=== PATIENT | female | born 1960 | race Caucasian/White ===

== ENCOUNTER 2017-02-04 15:57 | Emergency (ER) | payer OTHER ==
--- NOTE | 2017-02-04 16:08 | DR.PSYCH ---
HPI - Time Seen Time seen: 16:00 - Complaint Chief Complaint Doctors Comments: Patient states that she want to kill herself. She can not take it anymore. She states that she is tired of working and paying all the expenses and her does not scherer anything. She has been for seven years and has tried to kill self before. She states that her has not worked in the seven years of the marriage; she has but his clothes out and he just brings them back in. He has not worked during the marriage and she is just tired. The only this that will help med is to kill myself; just put a gun to my head. Both she and her drink and smoke. Patient states that she has tried to be a perfect person, was brought up in the pentecostalism, has tried to be a perfect person, but I am tired, just want to end it all. She states that she had colon cancer six years ago and last colonoscopy was negative for cancer. Nothing at this time can help her but ending it all. She has tried to get her out of the house but this has failed. PMH - PMH Past Medical History: Anxiety, Depression, Hypertension Past Surgical History: Yes Surgical History: Ortho Surgery - Social History Do you use any recreational Drugs:: No ROS - Review of Systems Eyes: No Symptoms Reported ENTM: No Symptoms Reported Respiratoy: No Symptoms Reported Cardiovascular: No Symptoms Reported Gastrointestinal/Abdominal: No Symptoms Reported Genitourinary: No Symptoms Reported Neurological: No Symptoms Reported Musculoskeletal: No Symptoms Reported Integumentary: No Symptoms Reported Hematologic/Lymphatic: No Symptoms Reported Endocrine: No Symptoms Reported Psychiatric: No Symptoms Reported All Other Systems: Reviewed and Negative PE - Vitals Vitals: Temperature 97.8 F Pulse Rate 81 Respiratory Rate 22 Blood Pressure [Left Arm] 105/59 Blood Pressure 140/86 O2 Sat by Pulse Oximetry 94 - General General Appearance: Alert, Anxious - Head Head Exam: Normal Inspection, Atraumatic Head Exam Physical: negative: Laceration, Abrasion, Contusion, Hematoma, Raccoon Eyes, Leija's Sign, Tenderness of Temporal Artery, CSF Rhinorrhea, CSF Otorrhea, Other - Eyes Eye exam: PERRL, EOMI Pupils: Regular, Round: Bilateral Sclera/Conjunctival: Normal Inspection: Bilateral - ENT ENT Exam: Normal Exam - Neck Neck Exam: Normal Inspection, Full ROM - Chest Chest Inspection: Normal Inspection - Respiratory Respiratory Exam: Normal Lung Sounds Bilat Respiratory Exam: Bilateral Clear to Auscultation - Cardiovascular Cardiovascular Exam: Regular Rate, Normal Rhythm - Abdominal Exam Abdominal Exam: Normal Inspection, Normal Bowel Sounds Abdominal Tenderness: negative: RUQ, RLQ, LUQ, LLQ, Epigastrium, Suprapubic, Diffuse, Mild, Moderate, Severe, Other - Extremities Extremities Exam: Normal Inspection, Full ROM - Back Back Exam: Normal Inspection - Neurologic Neurological Exam: Alert, Oriented X3, CN II-XII Intact Patient Oriented To: Person, Place, Time Speech: Fluid Speech Cranial Nerve Exam: EOM Function (II, III, IV, ): Normal, Facial Sensation (V) : Normal - Psychiatric Psychiatric Exam: Agitated, Suicidal Ideation ROR - Labs Reviewed Result Diagrams: 02/04/17 16:25 02/04/17 16:25 Laboratory: WBC 8.3 X10^3/uL (3.6-10.0) 02/04/17 16:25 RBC 4.27 X10^6/uL (3.5-5.4) 02/04/17 16:25 Hgb 12.5 g/dL (12.0-16.0) 02/04/17 16:25 Hct 37.2 % (36.0-47.0) 02/04/17 16:25 MCV 87.1 fL (80.0-100.0) 02/04/17 16:25 MCH 29.3 pg (27.0-34.0) 02/04/17 16:25 MCHC 33.7 g/dL (33.0-35.0) 02/04/17 16:25 RDW 13.4 % (11.6-16.5) 02/04/17 16:25 Plt Count 244 X10^3/uL (150.0-450.0) 02/04/17 16:25 MPV 8.0 fL (7.4-11.0) 02/04/17 16:25 Neut % 79.2 % (42.0-75.0) H 02/04/17 16:25 Lymph % 14.8 % (21.0-51.0) L 02/04/17 16:25 [place] % 4.7 % (0.0-13.0) 02/04/17 16:25 Eos % 0.8 % (0.9-2.9) L 02/04/17 16:25 Baso % 0.5 % (0.2-1.0) 02/04/17 16:25 Neut # 6.5 x10^3/uL (2.2-4.8) H 02/04/17 16:25 Lymph # 1.2 X10^3/uL (1.3-2.9) L 02/04/17 16:25 [place] # 0.4 x10^3/uL (0.3-0.8) 02/04/17 16:25 Eos # 0.1 x10^3/uL (0.0-0.2) 02/04/17 16:25 Baso # 0.0 X10^3/uL (0.0-0.1) 02/04/17 16:25 Absolute Nucleated RBC 0.0 /100WBC 02/04/17 16:25 Sodium 143 mmol/L (136-145) 02/04/17 16:25 Corrected Sodium TNP 02/04/17 16:25 Potassium 4.1 mmol/L (3.5-5.1) 02/04/17 16:25 Chloride 109 mmol/L (98-107) H 02/04/17 16:25 Carbon Dioxide 26.2 mmol/L (21-32) 02/04/17 16:25 BUN 12 mg/dL (7-18) 02/04/17 16:25 Creatinine 0.87 mg/dL (0.55-1.02) 02/04/17 16:25 Est GFR (MDRD) Af Amer > 60 (>60) 02/04/17 16:25 Est GFR (MDRD) Non-Af > 60 (>60) 02/04/17 16:25 Glucose 89 mg/dL (65-99) 02/04/17 16:25 Calcium 9.0 mg/dL (8.5-10.1) 02/04/17 16:25 Corrected Calcium TNP 02/04/17 16:25 Total Bilirubin 0.10 mg/dL (0.2-1.0) L 02/04/17 16:25 AST 22 Units/L (15-37) 02/04/17 16:25 ALT 20 Units/L (12-78) 02/04/17 16:25 Alkaline Phosphatase 93 Units/L (46-116) 02/04/17 16:25 Total Protein 8.0 g/dL (6.4-8.2) 02/04/17 16:25 Albumin 4.4 g/dL (3.4-5.0) 02/04/17 16:25 Globulin 3.6 g/dL (2.5-4.5) 02/04/17 16:25 Albumin/Globulin Ratio 1.2 Ratio (1.1-2.1) 02/04/17 16:25 Specimen Type Clean catch urine 02/04/17 16:28 Urine Color Yellow (YELLOW) 02/04/17 16: Urine Appearance Clear (CLEAR) 02/04/17 16:28 Urine pH 5.0 (5.0 - 8.0) 02/04/17 16:28 Ur Specific [place] 1.025 (1.000-1.030) 02/04/17 16:28 Urine Protein 2+ (NEGATIVE) 02/04/17 16:28 Urine Glucose (UA) Negative (NEGATIVE) 02/04/17 16:28 Urine Ketones Negative (NEGATIVE) 02/04/17 16:28 Urine Occult Blood 1+ (NEGATIVE) 02/04/17 16:28 Urine Nitrite Negative (NEGATIVE) 02/04/17 16:28 Urine Bilirubin Negative (NEGATIVE) 02/04/17 16:28 Urine Urobilinogen Normal (NORMAL) 02/04/17 16:28 Ur Leukocyte Esterase 1+ (NEGATIVE) 02/04/17 16:28 Urine RBC 01 - 04 /HPF (NEGATIVE) 02/04/17 16:28 Urine WBC 03 - 06 /HPF (NEGATIVE) 02/04/17 16:28 Ur Squamous Epith Cells Many /HPF (NEGATIVE) 02/04/17 16:28 Amorphous Sediment 1+ /HPF (NEGATIVE) 02/04/17 16:28 Urine Bacteria Trace /HPF (NEGATIVE) 02/04/17 16:28 Hyaline Casts Rare /LPF (NEGATIVE) 02/04/17 16:28 Ur Culture Indicated? No/not indicated 02/04/17 16:28 Salicylates < 2.8 mg/dL (2.8-20) L 02/04/17 16:25 Urine Opiates Screen Negative (NEG=<300) 02/04/17 16:28 Urine Methadone Screen Negative (NEG=<300) 02/04/17 16:28 Acetaminophen < 10.0 ug/mL (10-30) L 02/04/17 16:25 Ur Barbiturates Screen Negative (NEG=<200) 02/04/17 16:28 Ur Phencyclidine Scrn Negative (NEG=<25) 02/04/17 16:28 Ur Amphetamines Screen Negative (NEG=<1000) 02/04/17 16:28 U Benzodiazepines Scrn Negative (NEG=<200) 02/04/17 16:28 Urine Cocaine Screen Negative (NEG=<300) 02/04/17 16:28 U Marijuana (THC) Screen Negative (NEG=<50) 02/04/17 16:28 Ethyl Alcohol mg/dL 170 mg/dL (0-19.9) H 02/04/17 16:25 - Diagnosis Discharge Problem: Suicidal risk, Alcohol abuse - Discharge Plan Condition: Stable - Follow ups/Referrals Follow ups/Referrals: NFD,None [Primary Care Provider] - 3 days - Instructions Additional Notes - Additional Notes Additional Notes: Patient accepted by [facility] for evaluation and treatment.
[2017-02-04 16:16] VITALS: BP 140/86; BMI 28.3
[2017-02-04 16:32] LABS: BASOPHILS % (AUTO) 0.5 % (0.2-1.0); EOSINOPHILS # (AUTO) 0.1 x10^3/uL (0.0-0.2); EOSINOPHILS % (AUTO) 0.8 % (0.9-2.9); HEMATOCRIT 37.2 % (36.0-47.0); HEMOGLOBIN 12.5 g/dL (12.0-16.0); LYMPHOCYTES # (AUTO) 1.2 X10^3/uL (1.3-2.9); LYMPHOCYTES % (AUTO) 14.8 % (21.0-51.0); MEAN CORPUSCULAR HEMOGLOBIN 29.3 pg (27.0-34.0); MEAN CORPUSCULAR HGB CONC 33.7 g/dL (33.0-35.0); MEAN CORPUSCULAR VOLUME 87.1 fL (80.0-100.0); MONOCYTES # (AUTO) 0.4 x10^3/uL (0.3-0.8); MONOCYTES % (AUTO) 4.7 % (0.0-13.0); NEUTROPHILS # (AUTO) 6.5 x10^3/uL (2.2-4.8); NEUTROPHILS % (AUTO) 79.2 % (42.0-75.0); PLATELET COUNT 244 X10^3/uL (150.0-450.0); RED BLOOD COUNT 4.27 X10^6/uL (3.5-5.4); RED CELL DISTRIBUTION WIDTH 13.4 % (11.6-16.5); WHITE BLOOD COUNT 8.3 X10^3/uL (3.6-10.0)
--- NOTE | 2017-02-04 16:37 | RAD ---
HISTORY: Depression, suicidal ideations Study: Chest AP portable Comparison: 12/05/2014 Findings: The trachea is midline. The cardiac silhouette is unremarkable. The lungs are clear without focal i nfiltrate or effusion. The bony thorax is unremarkable. IMPRESSION: 1. No acute cardiopulmonary disease. Reported By:
[2017-02-04 16:56] LABS: ALANINE AMINOTRANSFERASE 20 Units/L (12-78); ALBUMIN 4.4 g/dL (3.4-5.0); ALKALINE PHOSPHATASE 93 Units/L (46-116); ASPARTATE AMINO TRANSFERASE 22 Units/L (15-37); BLOOD ALCOHOL 170 mg/dL (0-19.9); BLOOD UREA NITROGEN 12 mg/dL (7-18); CARBON DIOXIDE 26.2 mmol/L (21-32); CHLORIDE 109 mmol/L (98-107); CREATININE 0.87 mg/dL (0.55-1.02); SODIUM 143 mmol/L (136-145); eGFR BLACK RACES > 60 (>60); eGFR NON BLACK RACES > 60 (>60)
[2017-02-04 16:59] LABS: SALICYLATE < 2.8 mg/dL (2.8-20)
[2017-02-04 17:02] LABS: ACETAMINOPHEN < 10.0 ug/mL (10-30)
[2017-02-04 17:11] LABS: BILIRUBIN,URINE NEGATIVE (NEGATIVE); BLOOD/HEMOGLOBIN,URINE 1+ (NEGATIVE); GLUCOSE, URINE NEGATIVE (NEGATIVE); KETONES,URINE NEGATIVE (NEGATIVE); LEUKOCYTE ESTERASE ,URINE 1+ (NEGATIVE); NITRITES,URINE NEGATIVE (NEGATIVE); PROTEIN,URINE 2+ (NEGATIVE); UROBILINOGEN,URINE NORMAL (NORMAL)
[2017-02-04 17:12] LABS: AMORPHOUS SEDIMENT,UR 1+ /HPF (NEGATIVE); APPEARANCE,URINE CLEAR (CLEAR); BACTERIA,URINE TRACE /HPF (NEGATIVE); COLOR,URINE YELLOW (YELLOW); SQUAMOUS EPITHELIAL CELL,UR MANY /HPF (NEGATIVE)
[2017-02-04 17:13] LABS: HYALINE CASTS, URINE RARE /LPF (NEGATIVE)
[2017-02-04] MEDS ORDERED: TYLENOL 325 MG TAB PO ONE ×2 (18:58→18:59)
== END 2017-02-04 19:15 ==
LOC: ER 16:10
DX: R45.851 Suicidal ideations (principal); F10.10 Alcohol abuse, uncomplicated
CPT/HCPCS: 36415; 71010; 80053; 80307; 80320; 81001; 85025; 93005; 93010; 99285; G0434; G6038; G6039; G6040

== ENCOUNTER 2017-02-22 21:03 | Emergency (ER) | payer OTHER ==
[2017-02-22 21:09] VITALS: BMI 25.7
[2017-02-22 21:57] LABS: BASOPHILS % (AUTO) 0.5 % (0.2-1.0); EOSINOPHILS # (AUTO) 0.2 x10^3/uL (0.0-0.2); EOSINOPHILS % (AUTO) 3.8 % (0.9-2.9); HEMATOCRIT 35.3 % (36.0-47.0); LYMPHOCYTES # (AUTO) 2.1 X10^3/uL (1.3-2.9); LYMPHOCYTES % (AUTO) 32.7 % (21.0-51.0); MEAN CORPUSCULAR HEMOGLOBIN 29.2 pg (27.0-34.0); MEAN CORPUSCULAR HGB CONC 33.9 g/dL (33.0-35.0); MEAN CORPUSCULAR VOLUME 85.9 fL (80.0-100.0); MEAN PLATELET VOLUME 7.8 fL (7.4-11.0); MONOCYTES # (AUTO) 0.6 x10^3/uL (0.3-0.8); MONOCYTES % (AUTO) 8.9 % (0.0-13.0); NEUTROPHILS # (AUTO) 3.4 x10^3/uL (2.2-4.8); NEUTROPHILS % (AUTO) 54.1 % (42.0-75.0); PLATELET COUNT 266 X10^3/uL (150.0-450.0); RED BLOOD COUNT 4.11 X10^6/uL (3.5-5.4); RED CELL DISTRIBUTION WIDTH 13.5 % (11.6-16.5); WHITE BLOOD COUNT 6.3 X10^3/uL (3.6-10.0)
[2017-02-22 22:02] LABS: ALANINE AMINOTRANSFERASE 163 Units/L (12-78); ALBUMIN 4.4 g/dL (3.4-5.0); ALKALINE PHOSPHATASE 93 Units/L (46-116); ASPARTATE AMINO TRANSFERASE 77 Units/L (15-37); BLOOD ALCOHOL 240 mg/dL (0-19.9); BLOOD UREA NITROGEN 8 mg/dL (7-18); CALCIUM 9.1 mg/dL (8.5-10.1); CARBON DIOXIDE 27.8 mmol/L (21-32); CHLORIDE 101 mmol/L (98-107); CREATININE 0.74 mg/dL (0.55-1.02); SODIUM 139 mmol/L (136-145); TOTAL PROTEIN 7.9 g/dL (6.4-8.2); eGFR BLACK RACES > 60 (>60); eGFR NON BLACK RACES > 60 (>60)
[2017-02-22 22:13] LABS: SALICYLATE < 2.8 mg/dL (2.8-20)
[2017-02-22 22:19] LABS: BILIRUBIN,URINE NEGATIVE (NEGATIVE); BLOOD/HEMOGLOBIN,URINE NEGATIVE (NEGATIVE); GLUCOSE, URINE NEGATIVE (NEGATIVE); KETONES,URINE NEGATIVE (NEGATIVE); LEUKOCYTE ESTERASE ,URINE 1+ (NEGATIVE); NITRITES,URINE NEGATIVE (NEGATIVE); PROTEIN,URINE NEGATIVE (NEGATIVE); UROBILINOGEN,URINE NORMAL (NORMAL)
--- NOTE | 2017-02-22 22:31 | DR.GENAD ---
HPI - PCP Primary Care Physician: SILVINO - HPI Comment HPI Comment: [place]annah, I told my family that they'll be better off without me. She states she had planned to off herself (with a gun) but does not have the means (gun). She just feels very low. She states that she was treated and just released from [facility] as an inpt. last week and she was supposed to be seen in an outpt. setting today but that appt. was cancelled and rescheduled for next week. - Complaint/Symptoms Chief Complaint:: SUICIDAL DEPRESSION Self Treatment fo Chief Complaint: NONE, WAS SENT TO [facility] RECENTLY FOR SAME C/C - Nurses notes reviewed Nurses Notes Review: Yes - Source History Provided: Patient - Mode of Arrival Mode of Arrival: Ambulatory - Timing Onset of Chief Complaint: 02/22/17 Came on: Suddenly - Associated Signs and Symptoms Associated Signs and Symptoms: Depression PMH - PMH Past Medical History: Yes Past Medical History: Anxiety, Depression, Hypertension Past Surgical History: Yes Surgical History: Ortho Surgery - Family History History of Family Medical Conditions: No - Social History Does patient currently use any type of tobacco product: Yes Have you used tobacco products in the last 12 months: Yes Type of Tobacco Use: Cigarettes Does any household member use tobacco: No Alcohol Use: Occasionally Do you use any recreational Drugs:: No Lives With: Spouse Lives Where: Home - infectious screening In the last 2 months have you had wt loss of >10#?: NO Have you had fever, night sweats or hemotysis?: No Have you traveled outside the country in the last 6 months?: No Isolation: Standard ROS - Review of Systems Constitutional: No Symptoms Reported Eyes: No Symptoms Reported ENTM: No Symptoms Reported Respiratoy: No Symptoms Reported Cardiovascular: No Symptoms Reported Gastrointestinal/Abdominal: No Symptoms Reported Genitourinary: No Symptoms Reported Neurological: No Symptoms Reported Musculoskeletal: No Symptoms Reported Integumentary: No Symptoms Reported Hematologic/Lymphatic: No Symptoms Reported Endocrine: No Symptoms Reported Psychiatric: Depression All Other Systems: Reviewed and Negative PE - Vital Signs Vitals: Temperature 98.4 F Pulse Rate [Left Brachial] 74 Pulse Rate 84 Respiratory Rate 16 Blood Pressure [Left Arm] 110/69 Blood Pressure 154/87 O2 Sat by Pulse Oximetry 97 - General Limitations: No Limitations General Appearance: Alert, In No Apparent Distress - Head Head Exam: Normal Inspection - Eyes Eye exam: Normal Appearance - ENT ENT Exam: Normal Exam - Neck Neck Exam: Normal Inspection, Full ROM - Chest Chest Inspection: Normal Inspection - Respiratory Respiratory Exam: Normal Lung Sounds Bilat - Cardiovascular Cardiovascular Exam: Regular Rate, Normal Rhythm - Abdominal Exam Abdominal Exam: Normal Inspection, Normal Bowel Sounds, Soft - Extremities Extremities Exam: Normal Inspection - Back Back Exam: Normal Inspection - Neurologic Neurological Exam: Alert, Oriented X3, CN II-XII Intact - Psychiatric Psychiatric Exam: Normal Affect, Depressed - Skin Skin Exam: Warm, Dry, Intact, Normal Color ROR - Labs Reviewed Result Diagrams: 02/22/17 21:41 02/22/17 21:41 Laboratory: WBC 6.3 X10^3/uL (3.6-10.0) 02/22/17 21:41 RBC 4.11 X10^6/uL (3.5-5.4) 02/22/17 21:41 Hgb 12.0 g/dL (12.0-16.0) 02/22/17 21:41 Hct 35.3 % (36.0-47.0) L 02/22/17 21:41 MCV 85.9 fL (80.0-100.0) 02/22/17 21:41 MCH 29.2 pg (27.0-34.0) 02/22/17 21:41 MCHC 33.9 g/dL (33.0-35.0) 02/22/17 21:41 RDW 13.5 % (11.6-16.5) 02/22/17 21:41 Plt Count 266 X10^3/uL (150.0-450.0) 02/22/17 21:41 MPV 7.8 fL (7.4-11.0) 02/22/17 21:41 Neut % 54.1 % (42.0-75.0) 02/22/17 21:41 Lymph % 32.7 % (21.0-51.0) 02/22/17 21:41 [place] % 8.9 % (0.0-13.0) 02/22/17 21:41 Eos % 3.8 % (0.9-2.9) H 02/22/17 21:41 Baso % 0.5 % (0.2-1.0) 02/22/17 21:41 Neut # 3.4 x10^3/uL (2.2-4.8) 02/22/17 21:41 Lymph # 2.1 X10^3/uL (1.3-2.9) 02/22/17 21:41 [place] # 0.6 x10^3/uL (0.3-0.8) 02/22/17 21:41 Eos # 0.2 x10^3/uL (0.0-0.2) 02/22/17 21:41 Baso # 0.0 X10^3/uL (0.0-0.1) 02/22/17 21:41 Absolute Nucleated RBC 0.0 /100WBC 02/22/17 21:41 Sodium 139 mmol/L (136-145) 02/22/17 21:41 Corrected Sodium TNP 02/22/17 21:41 Potassium 4.2 mmol/L (3.5-5.1) 02/22/17 21:41 Chloride 101 mmol/L (98-107) 02/22/17 21:41 Carbon Dioxide 27.8 mmol/L (21-32) 02/22/17 21:41 BUN 8 mg/dL (7-18) 02/22/17 21:41 Creatinine 0.74 mg/dL (0.55-1.02) 02/22/17 21:41 Est GFR (MDRD) Af Amer > 60 (>60) 02/22/17 21:41 Est GFR (MDRD) Non-Af > 60 (>60) 02/22/17 21:41 Glucose 107 mg/dL (65-99) H 02/22/17 21:41 Calcium 9.1 mg/dL (8.5-10.1) 02/22/17 21:41 Corrected Calcium TNP 02/22/17 21:41 Total Bilirubin 0.20 mg/dL (0.2-1.0) 02/22/17 21:41 AST 77 Units/L (15-37) H 02/22/17 21:41 ALT 163 Units/L (12-78) H 02/22/17 21:41 Alkaline Phosphatase 93 Units/L (46-116) 02/22/17 21:41 Total Protein 7.9 g/dL (6.4-8.2) 02/22/17 21:41 Albumin 4.4 g/dL (3.4-5.0) 02/22/17 21:41 Globulin 3.5 g/dL (2.5-4.5) 02/22/17 21:41 Albumin/Globulin Ratio 1.3 Ratio (1.1-2.1) 02/22/17 21:41 TSH 3rd Generation 2.708 uIU/mL (0.358-3.74) 02/22/17 21:41 Specimen Type Clean catch urine 02/22/17 22:09 Urine Color Pale yellow (YELLOW) 02/22/17 22:09 Urine Appearance Clear (CLEAR) 02/22/17 22:09 Urine pH 5.0 (5.0 - 8.0) 02/22/17 22:09 Ur Specific [place] 1.010 (1.000-1.030) 02/22/17 22:09 Urine Protein Negative (NEGATIVE) 02/22/17 22:09 Urine Glucose (UA) Negative (NEGATIVE) 02/22/17 22:09 Urine Ketones Negative (NEGATIVE) 02/22/17 22:09 Urine Occult Blood Negative (NEGATIVE) 02/22/17 22:09 Urine Nitrite Negative (NEGATIVE) 02/22/17 22:09 Urine Bilirubin Negative (NEGATIVE) 02/22/17 22:09 Urine Urobilinogen Normal (NORMAL) 02/22/17 22:09 Ur Leukocyte Esterase 1+ (NEGATIVE) 02/22/17 22:09 Urine RBC None seen /HPF (NEGATIVE) 02/22/17 22:09 Urine WBC 2-3 /HPF (NEGATIVE) 02/22/17 22:09 Ur Squamous Epith Cells Rare /HPF (NEGATIVE) 02/22/17 22:09 Amorphous Sediment Trace /HPF (NEGATIVE) 02/22/17 22:09 Urine Bacteria Trace /HPF (NEGATIVE) 02/22/17 22:09 Ur Culture Indicated? No/not indicated 02/22/17 22:09 Salicylates < 2.8 mg/dL (2.8-20) L 02/22/17 21:41 Urine Opiates Screen Negative (NEG=<300) 02/22/17 22:09 Urine Methadone Screen Negative (NEG=<300) 02/22/17 22:09 Acetaminophen 0.0 ug/mL (10-30) L 02/22/17 21:41 Ur Barbiturates Screen Negative (NEG=<200) 02/22/17 22:09 Ur Phencyclidine Scrn Negative (NEG=<25) 02/22/17 22:09 Ur Amphetamines Screen Negative (NEG=<1000) 02/22/17 22:09 U Benzodiazepines Scrn Negative (NEG=<200) 02/22/17 22:09 Urine Cocaine Screen Negative (NEG=<300) 02/22/17 22:09 U Marijuana (THC) Screen Negative (NEG=<50) 02/22/17 22:09 Ethyl Alcohol mg/dL 108 mg/dL (0-19.9) H 02/23/17 05:20 - Diagnosis Discharge Problem: Suicidal ideation, Alcohol abuse - Discharge Plan Disposition: 65 XFER TO PSYCH HOSP/UNIT Condition: Stable - Follow ups/Referrals Follow ups/Referrals: ROMAN DUBOIS [Primary Care Provider] - 3 days - Instructions
[2017-02-22 22:32] LABS: AMORPHOUS SEDIMENT,UR TRACE /HPF (NEGATIVE); APPEARANCE,URINE CLEAR (CLEAR); BACTERIA,URINE TRACE /HPF (NEGATIVE); COLOR,URINE PALE YELLOW (YELLOW); RBC,URINE NONE SEEN /HPF (NEGATIVE); SQUAMOUS EPITHELIAL CELL,UR RARE /HPF (NEGATIVE)
[2017-02-23] MEDS ORDERED: TYLENOL 500 MG TAB EXTRA STRENGTH PO ONE ×2 (03:28→03:29)
[2017-02-23 09:24] VITALS: BP 111/82
== END 2017-02-23 09:20 ==
LOC: ER 21:19
DX: R45.851 Suicidal ideations (principal); F10.10 Alcohol abuse, uncomplicated
CPT/HCPCS: 36415; 80053; 80307; 80320; 81001; 84443; 85025; 99285; G0434; G6038; G6039; G6040

== ENCOUNTER 2023-09-21 22:36 | Observation (INO) ==
--- NOTE | 2023-09-21 22:41 | ED.ABDFE ---
HPI Time Seen Time Seen by Provider: 09/21/23 22:41 Complaint Doctors Chief Complaint Comments: Patient states that she began to have LUQ abdominal pain between 16:00 and 17:00 today. Patient states that the pain is a sharp pain that is severe. She states that she also has dry heaves. Patient denies: fever, hematemesis, hematochezia, weakness. PMH PMH Past Medical History: Anxiety, Depression and Hypertension Past Surgical History: Yes Surgical History: Ortho Surgery Family History Family Medical History: denies Diabetes Mellitus, Cancer, NC, Coronary Artery Disease, Heart Failure, Sudden Cardiac or Hypertension Social History Do you use any recreational Drugs:: No ROS Review of Systems Constitutional: No Symptoms Reported Eyes: No Symptoms Reported ENTM: No Symptoms Reported Respiratoy: No Symptoms Reported Cardiovascular: No Symptoms Reported Gastrointestinal/Abdominal: Abdominal Pain (LUQ) and Nausea; negative Vomiting Genitourinary: No Symptoms Reported Neurological: No Symptoms Reported Musculoskeletal: No Symptoms Reported Integumentary: No Symptoms Reported Hematologic/Lymphatic: No Symptoms Reported Endocrine: No Symptoms Reported Psychiatric: No Symptoms Reported All Other Systems: Reviewed and Negative PE Vital Signs Vitals: Vital Signs Temperature 98.2 F Pulse Rate [Left Radial] 90 Pulse Rate 83 Pulse Rate 82 Pulse Rate 90 Pulse Rate 76 Respiratory Rate 18 Respiratory Rate 20 Respiratory Rate 22 Respiratory Rate 24 Respiratory Rate 24 Respiratory Rate 24 Respiratory Rate 24 Blood Pressure [Left Arm] 139/92 Blood Pressure 132/68 Blood Pressure 132/68 Blood Pressure 139/92 Blood Pressure 146/73 Blood Pressure 147/68 O2 Sat by Pulse Oximetry 96 O2 Sat by Pulse Oximetry 98 O2 Sat by Pulse Oximetry 98 O2 Sat by Pulse Oximetry 100 O2 Sat by Pulse Oximetry 98 General Limitations: No Limitations and Language Barrier General Appearance: Alert and In No Apparent Distress Head Head Exam: Normal Inspection Eyes Eye exam: Normal Appearance ENT ENT Exam: Normal Exam Neck Neck Exam: Normal Inspection Chest Chest Inspection: Normal Inspection Respiratory Respiratory Exam: Normal Lung Sounds Bilat Respiratory Exam: Bilateral: Clear to Auscultation Cardiovascular Cardiovascular Exam: Regular Rate and Normal Rhythm Abdominal Exam Abdominal Exam: Rigidity and Hypoactive Bowel Sounds Abdominal Tenderness: LUQ and Epigastrium Rectal Rectal Exam: Deferred Back Back Exam: Normal Inspection Extremeties Extremities Exam: Normal Inspection Neurologic Neurological Exam: Alert and Oriented X3 Psychiatric Psychiatric Exam: Normal Affect and Normal Mood Skin Skin Exam: Warm, Dry and Intact MDM Differential Diagnosis Differential Diagnosis- Considerations may include:: Bowel Obstruction, Cholelethiasis, Diverticular disease, Inflammatory BD, Ischemic Bowel, Pancreatitis and Other (comments) (perforation) Other differential diagnosis: electrolyte disorder COURSE Treatment Treatment: Patient was brought to an exam room and IV access was initiated. Labs and tests were ordered and patient was given Dilaudid 1 mg IV and Reglan 10mg IV, Pepcid 20 mg IV, dicyclomine 10 mg IM, normal saline 1 L IV bolus. Labs/tests revealed: WBC 17.3, CMP stable, lactic acid 1.8, CRP 2.9, amylase 74, lipase 77, abdomen pelvis CT without contrast mild to intermediate small bowel obstruction may be secondary to adhesions per the radiologist. Patient has been given Zosyn 3.375mg iv 1 dose in the ED. Discussed case with Dr. Heath. Dr. Heath has admitted the patient to his service and he states Dr. Garrett will be consulted. ROR Labs Reviewed Laboratory Results Reviewed?: Yes 09/21/23 23:00 09/21/23 23:00 Laboratory: WBC 17.3 X10^3/uL (3.6-10.0) H 09/21/23 23:00 RBC 4.87 X10^6/uL (3.5-5.4) 09/21/23 23:00 Hgb 13.3 g/dL (12.0-16.0) 09/21/23 23:00 Hct 40.5 % (36.0-47.0) 09/21/23 23:00 MCV 83.1 fL (80.0-100.0) 09/21/23 23:00 MCH 27.2 pg (27.0-34.0) 09/21/23 23:00 MCHC 32.7 g/dL (33.0-35.0) L 09/21/23 23:00 RDW 14.5 % (11.6-16.5) 09/21/23 23:00 Plt Count 313 X10^3/uL (150.0-450.0) 09/21/23 23:00 MPV 7.7 fL (7.4-11.0) 09/21/23 23:00 Neut % (Auto) 86.7 % (42.0-75.0) H 09/21/23 23:00 Lymph % (Auto) 6.6 % (21.0-51.0) L 09/21/23 23:00 [place] % (Auto) 5.9 % (0.0-13.0) 09/21/23 23:00 Eos % (Auto) 0.2 % (0.9-2.9) L 09/21/23 23:00 Baso % (Auto) 0.6 % (0.2-1.0) 09/21/23 23:00 Neut # (Auto) 15.1 x10^3/uL (2.2-4.8) H 09/21/23 23:00 Lymph # (Auto) 1.1 X10^3/uL (1.3-2.9) L 09/21/23 23:00 [place] # (Auto) 1.0 x10^3/uL (0.3-0.8) H 09/21/23 23:00 Eos # (Auto) 0.0 x10^3/uL (0.0-0.2) 09/21/23 23:00 Baso # (Auto) 0.1 X10^3/uL (0.0-0.1) 09/21/23 23:00 Absolute Nucleated RBC 0.1 /100WBC 09/21/23 23:00 Sodium 140 mmol/L (136-145) 09/21/23 23:00 Corrected Sodium 141 mmol/L (136-145) 09/21/23 23:00 Potassium 4.4 mmol/L (3.5-5.1) 09/21/23 23:00 Chloride 101 mmol/L (98-107) 09/21/23 23:00 Carbon Dioxide 25.8 mmol/L (21-32) 09/21/23 23:00 BUN 18 mg/dL (7-18) 09/21/23 23:00 Creatinine 0.99 mg/dL (0.55-1.02) 09/21/23 23:00 Est GFR (MDRD) Af Amer > 60 (>60) 09/21/23 23:00 Est GFR (MDRD) Non-Af > 60 (>60) 09/21/23 23:00 Glucose 146 mg/dL (65-99) H 09/21/23 23:00 Lactic Acid 1.8 mmol/L (0.4-2.0) 09/21/23 23:26 Calcium 9.8 mg/dL (8.5-10.1) 09/21/23 23:00 Corrected Calcium TNP 09/21/23 23:00 Total Bilirubin 0.30 mg/dL (0.2-1.0) 09/21/23 23:00 AST 18 Units/L (15-37) 09/21/23 23:00 ALT 29 Units/L (12-78) 09/21/23 23:00 Alkaline Phosphatase 74 Units/L (46-116) 09/21/23 23:00 C-Reactive Protein 2.90 mg/L (0-3.0) 09/21/23 23:00 Total Protein 8.2 g/dL (6.4-8.2) 09/21/23 23:00 Albumin 4.4 g/dL (3.4-5.0) 09/21/23 23:00 Globulin 3.8 g/dL (2.5-4.5) 09/21/23 23:00 Albumin/Globulin Ratio 1.2 Ratio (1.1-2.1) 09/21/23 23:00 Amylase 74 Units/L (25-115) 09/21/23 23:00 Lipase 77 Units/L (16-77) 09/21/23 23:00 Opioid Opioid Risk Tool Age (Jimmy box if 16-45): No History of Preadolescent Sexual Abuse: No Total: 0 Total Score Risk Category: Low Risk Copyright: [employer] predicting aberrant behaviors Discharge Plan Diagnosis Discharge Problem: SBO (small bowel obstruction) Discharge Plan Patient Disposition: ADMITTED INPATIENT Condition: Stable Prescriptions: No Action nifedipine 30 MG tablet extended release 24 hr 30 mg PO DAILY citalopram [Celexa] 40 MG tablet olanzapine [Zyprexa] 2.5 MG tablet Health Concerns: Post Hospitalization: new medications and changes needed to prevent readmission or further decline. Pt educated and given instructions on all concerns. Plan of Treatment: Continue with present treatment and follow up plan. Pt is to keep follow up appointment as instructed and take medications as ordered. Orders to Discharge Patient Discharge Orders: Transfer (Routine); Ordered 09/22/23 Ordered By: Keely Nur Follow ups/Referrals Follow ups/Referrals: ROMAN DUBOIS [Primary Care Provider] - 3 days Instructions Stand Alone Forms: Post Hospital Follow Up Care
[2023-09-21] MEDS: NS 1,000 ML IV 1,000 ML IV ONE (23:15)
[2023-09-21] MEDS: PEPCID 20 MG VIAL IVP ONE (23:16)
[2023-09-21] MEDS: DILAUDID INJ IVP ONE (23:17)
[2023-09-21] MEDS: REGLAN INJ 10 MG VIAL IVP ONE (23:18)
[2023-09-21] MEDS: BENTYL I.M. INJ 10 MG IM ONE (23:18)
[2023-09-21 23:23] LABS: BASOPHILS # (AUTO) 0.1 X10^3/uL (0.0-0.1); BASOPHILS % (AUTO) 0.6 % (0.2-1.0); EOSINOPHILS % (AUTO) 0.2 % (0.9-2.9); HEMATOCRIT 40.5 % (36.0-47.0); HEMOGLOBIN 13.3 g/dL (12.0-16.0); LYMPHOCYTES # (AUTO) 1.1 X10^3/uL (1.3-2.9); LYMPHOCYTES % (AUTO) 6.6 % (21.0-51.0); MEAN CORPUSCULAR HEMOGLOBIN 27.2 pg (27.0-34.0); MEAN CORPUSCULAR HGB CONC 32.7 g/dL (33.0-35.0); MEAN CORPUSCULAR VOLUME 83.1 fL (80.0-100.0); MEAN PLATELET VOLUME 7.7 fL (7.4-11.0); MONOCYTES % (AUTO) 5.9 % (0.0-13.0); NEUTROPHILS # (AUTO) 15.1 x10^3/uL (2.2-4.8); NEUTROPHILS % (AUTO) 86.7 % (42.0-75.0); PLATELET COUNT 313 X10^3/uL (150.0-450.0); RED BLOOD COUNT 4.87 X10^6/uL (3.5-5.4); RED CELL DISTRIBUTION WIDTH 14.5 % (11.6-16.5); WHITE BLOOD COUNT 17.3 X10^3/uL (3.6-10.0)
[2023-09-21 23:30] LABS: ALANINE AMINOTRANSFERASE 29 Units/L (12-78); ALBUMIN 4.4 g/dL (3.4-5.0); ALKALINE PHOSPHATASE 74 Units/L (46-116); AMYLASE 74 Units/L (25-115); ASPARTATE AMINO TRANSFERASE 18 Units/L (15-37); BLOOD UREA NITROGEN 18 mg/dL (7-18); CALCIUM 9.8 mg/dL (8.5-10.1); CARBON DIOXIDE 25.8 mmol/L (21-32); CHLORIDE 101 mmol/L (98-107); COR NA(FOR HYPERGLY) 141 mmol/L (136-145); CREATININE 0.99 mg/dL (0.55-1.02); GLUCOSE 146 mg/dL (65-99); LIPASE 77 Units/L (16-77); POTASSIUM 4.4 mmol/L (3.5-5.1); SODIUM 140 mmol/L (136-145); TOTAL PROTEIN 8.2 g/dL (6.4-8.2); eGFR NON BLACK RACES > 60 (>60)
--- NOTE | 2023-09-21 23:37 | CT ---
EXAM: ABDOMEN/PELVIS W/O CON HISTORY: Pt states she started having constant sharp pains in her left upper quadrant around 1700 today. Pt to ok a laxative to try to get some relief and has had a BM today.; HTN, SBO SX: Hemicoloectomy, Laparot chacorta, ORTHO COMPARISON: None. TECHNIQUE: Non-contrasted axial CT images of the abdomen and pelvis were obtained and reformatted into coronal a nd sagittal planes for further evaluation. Radiation dose: 216.04 mGy-cm total DLP FINDINGS: Lung bases are clear. Status post gastric bypass. Solid visceral organs of the upper abdomen are unremarkable. Gallbladder appears normal. No intra or extrahepatic biliary dilatation. Unremarkable appearance of the kidneys. No hydronephrosis, hydroureter or ureteral calculus. Unremarkable appearance of the urinary bladder. Multiple moderately distended gas and fluid-filled loops of small bowel; particularly in the left upp er to mid abdomen. Distal small bowel is largely decompressed. Unremarkable appearance of the colon. Reproductive structures are unremarkable. No evidence of acute appendicitis. No pneumoperitoneum. No significant fluid collection. No adenopathy. No acute osseous abnormality. Posterior spinal fusion hardware in place, status post disc arthroplasty, from L4-S1. IMPRESSION: Multiple moderately distended gas and fluid-filled loops of small bowel; particularly in the left upp er to mid abdomen. Distal small bowel is largely decompressed. Focal site of the transition from d ilated to decompressed small bowel is not visualized. Findings are most consistent with a mild to in termediate grade mechanical small bowel obstruction which may represent the sequela of adhesions. THIS IS AN ELECTRONICALLY VERIFIED FINAL REPORT 09/21/2023 11:33 PM - Electronically signed by Nicola Reese MD
[2023-09-22] MEDS: ZOSYN VIAL 3.375 GRAMS 3.375 G in NS 100 ML IV 100 ML IV SCH (00:10)
[2023-09-22] MEDS ORDERED: REGLAN INJ 10 MG VIAL IVP PRN (02:42)
[2023-09-22] MEDS ORDERED: ZOSYN VIAL 3.375 GRAMS 3.375 G in NS 100 ML IV 100 ML IV SCH (02:42)
[2023-09-22 04:16] VITALS: BMI 25.9
[2023-09-22] MEDS: PEPCID 20 MG VIAL 20 MG in NS 50 ML IV 50 ML IV SCH (04:40)
[2023-09-22] MEDS: TYLENOL 325 MG TAB PO PRN (04:44)
[2023-09-22] MEDS: NS 250 ML IV 25 ML IV PRN (05:15)
[2023-09-22 06:26] LABS: BASOPHILS % (AUTO) 0.4 % (0.2-1.0); EOSINOPHILS # (AUTO) 0.1 x10^3/uL (0.0-0.2); EOSINOPHILS % (AUTO) 0.9 % (0.9-2.9); HEMATOCRIT 34.4 % (36.0-47.0); HEMOGLOBIN 11.5 g/dL (12.0-16.0); LYMPHOCYTES # (AUTO) 1.2 X10^3/uL (1.3-2.9); LYMPHOCYTES % (AUTO) 12.3 % (21.0-51.0); MEAN CORPUSCULAR HEMOGLOBIN 27.7 pg (27.0-34.0); MEAN CORPUSCULAR HGB CONC 33.5 g/dL (33.0-35.0); MEAN CORPUSCULAR VOLUME 82.7 fL (80.0-100.0); MEAN PLATELET VOLUME 7.3 fL (7.4-11.0); MONOCYTES # (AUTO) 1.2 x10^3/uL (0.3-0.8); MONOCYTES % (AUTO) 11.4 % (0.0-13.0); NEUTROPHILS # (AUTO) 7.6 x10^3/uL (2.2-4.8); PLATELET COUNT 251 X10^3/uL (150.0-450.0); RED BLOOD COUNT 4.16 X10^6/uL (3.5-5.4); RED CELL DISTRIBUTION WIDTH 14.6 % (11.6-16.5); WHITE BLOOD COUNT 10.2 X10^3/uL (3.6-10.0)
[2023-09-22 06:35] LABS: ALANINE AMINOTRANSFERASE 25 Units/L (12-78); ALBUMIN 3.3 g/dL (3.4-5.0); ALKALINE PHOSPHATASE 53 Units/L (46-116); ASPARTATE AMINO TRANSFERASE 18 Units/L (15-37); BLOOD UREA NITROGEN 18 mg/dL (7-18); CALCIUM 8.1 mg/dL (8.5-10.1); CARBON DIOXIDE 27.5 mmol/L (21-32); CHLORIDE 108 mmol/L (98-107); COR CA(FOR HYPOALB) 8.7 mg/dL (8.5-10.1); CREATININE 0.77 mg/dL (0.55-1.02); GLUCOSE 91 mg/dL (65-99); SODIUM 144 mmol/L (136-145); TOTAL PROTEIN 6.4 g/dL (6.4-8.2); eGFR NON BLACK RACES > 60 (>60)
[2023-09-22] MEDS: PROCARDIA XL PO SCH (09:21)
[2023-09-22] MEDS: DILAUDID INJ IVP PRN (10:29)
[2023-09-22] MEDS: INDOCIN CAP 25 MG PO PRN (15:25)
[2023-09-22] MEDS: ELAVIL PO SCH (18:29)
--- NOTE | 2023-09-22 22:18 | RAD ---
EXAM: ACUTE ABDOMEN SERI ES HISTORY: SBO; COMPARISON: None available. TECHNICAL QUALITY: Satisfactory TECHNIQUE: AP supine and upright abdomen with AP chest x-ray views . FINDINGS: Heart size is normal. Aorta is tortuous. Pulmonary blood flow is normal. The lungs are clear witho ut effusion. There is some non-specific gas in the small and large bowel. There is no convincing ob struction. No free air is detected. There are no urinary tract calcifications. IMPRESSION: Non-specific bowel-gas pattern. Small-bowel obstruction is unlikely. THIS IS AN ELECTRONICALLY VERIFIED FINAL REPORT 09/22/2023 10:15 PM - Electronically signed by Navdeep Sanford MD
[2023-09-23 05:32] LABS: BASOPHILS # (AUTO) 0.1 X10^3/uL (0.0-0.1); BASOPHILS % (AUTO) 0.8 % (0.2-1.0); EOSINOPHILS # (AUTO) 0.1 x10^3/uL (0.0-0.2); EOSINOPHILS % (AUTO) 1.5 % (0.9-2.9); HEMATOCRIT 38.9 % (36.0-47.0); HEMOGLOBIN 12.7 g/dL (12.0-16.0); LYMPHOCYTES # (AUTO) 1.7 X10^3/uL (1.3-2.9); LYMPHOCYTES % (AUTO) 25.8 % (21.0-51.0); MEAN CORPUSCULAR HEMOGLOBIN 27.6 pg (27.0-34.0); MEAN CORPUSCULAR HGB CONC 32.7 g/dL (33.0-35.0); MEAN CORPUSCULAR VOLUME 84.4 fL (80.0-100.0); MEAN PLATELET VOLUME 7.4 fL (7.4-11.0); MONOCYTES # (AUTO) 0.8 x10^3/uL (0.3-0.8); MONOCYTES % (AUTO) 11.2 % (0.0-13.0); NEUTROPHILS # (AUTO) 4.1 x10^3/uL (2.2-4.8); NEUTROPHILS % (AUTO) 60.7 % (42.0-75.0); PLATELET COUNT 257 X10^3/uL (150.0-450.0); RED BLOOD COUNT 4.61 X10^6/uL (3.5-5.4); RED CELL DISTRIBUTION WIDTH 14.3 % (11.6-16.5); WHITE BLOOD COUNT 6.7 X10^3/uL (3.6-10.0)
[2023-09-23 05:44] LABS: ALANINE AMINOTRANSFERASE 26 Units/L (12-78); ALBUMIN 3.7 g/dL (3.4-5.0); ALKALINE PHOSPHATASE 61 Units/L (46-116); ASPARTATE AMINO TRANSFERASE 18 Units/L (15-37); BLOOD UREA NITROGEN 7 mg/dL (7-18); CARBON DIOXIDE 28.9 mmol/L (21-32); CHLORIDE 104 mmol/L (98-107); CREATININE 0.74 mg/dL (0.55-1.02); GLUCOSE 72 mg/dL (65-99); POTASSIUM 3.8 mmol/L (3.5-5.1); SODIUM 141 mmol/L (136-145); TOTAL PROTEIN 7.6 g/dL (6.4-8.2); eGFR NON BLACK RACES > 60 (>60)
[2023-09-23] MEDS ORDERED: CONSULT PHARMACY - POTASSIUM & MAGNESIUM XX SCH (07:00)
[2023-09-23] MEDS: POTASSIUM CHLORIDE LIQ PO SCH (09:32)
[2023-09-23] MEDS: MAG-OX TAB PO SCH (09:32)
[2023-09-23 10:26] VITALS: BP 149/80; PULSE 73; RESP 17; TEMP 97; O2SAT 100
== END 2023-09-23 11:15 | disposition home or self-care (01) ==
LOC: MED/SURG 22:36 → ER 22:36 → MED/SURG 09-22 02:59
PROVIDERS: ADMIT Family Medicine; ATTEND Obstetrics & Gynecology Obstetrics
DX: I10 Essential (primary) hypertension; R10.84 Generalized abdominal pain; K56.690 Other partial intestinal obstruction; F41.8 Other specified anxiety disorders; R51.9 Headache, unspecified